=== PATIENT | male | born 1955 | race Asian ===

== ENCOUNTER 2022-09-05 09:32 | Day surgery (SDC) | payer MEDICARE, MEDICAID ==
[~2022-09-05] VITALS: Ht 170.2 cm; Wt 68.0 kg
[2022-09-05 10:58] LABS: BASOPHILS # (AUTO) 0.1 K/uL (0.00-0.22); BASOPHILS % (AUTO) 0.9 % (0.0-2.0); EOSINOPHILS # (AUTO) 0.5 K/uL (0-0.4); HEMATOCRIT 46.4 % (36-52); HEMOGLOBIN 15.7 g/dL (12.0-18.0); LYMPHOCYTES # (AUTO) 2.5 K/uL (2.0-11.5); MEAN CORPUSCULAR HEMOGLOBIN 32 pg (27-31); MEAN CORPUSCULAR HGB CONC 34 g/dL (33-37); MONOCYTES # (AUTO) 0.7 K/uL (0.8-1.0); MONOCYTES % (AUTO) 12.5 % (1.7-9.3); NEUTROPHILS # (AUTO) 1.8 K/uL (1.8-7.7); NEUTROPHILS % (AUTO) 32.6 % (42.2-75.2); PLATELET COUNT (AUTO) 194 K/uL (140-450); RED BLOOD CELL COUNT(AUTO) 4.94 MIL/uL (4.20-6.10); RED CELL DISTRIBUTION WIDTH 13.5 % (11.6-13.7); WHITE BLOOD COUNT (AUTO) 5.6 K/uL (4.8-10.8)
[2022-09-05] MEDS ORDERED: fentaNYL citrate 0.05 MG/ML VIAL ONE (11:08)
[2022-09-05] MEDS ORDERED: LIDOCAINE 1% 500 MG/50 ML VIAL ONE (11:08)
[2022-09-05 11:18] LABS: PROTHROMBIN TIME 10.2 secs (10.8-13.4)
[2022-09-05] MEDS ORDERED: fentaNYL citrate 0.05 MG/ML VIAL IVP ONE (13:00)
== END 2022-09-05 14:00 | disposition home or self-care (01) ==
LOC: MDS 09:32 → MMU 09:33 → MDS 14:00
PROVIDERS: ATTEND Internal Medicine Gastroenterology
DX: B19.20 Unspecified viral hepatitis C without hepatic coma (principal); F17.210 Nicotine dependence, cigarettes, uncomplicated; I10 Essential (primary) hypertension; Z79.899 Other long term (current) drug therapy; Z20.822 Contact with and (suspected) exposure to COVID-19
CPT/HCPCS: 36415; 47000; 76942; 85025; 85610; 85730; 87426; J2001; J3010; Q0092; 88307; 88313

== ENCOUNTER 2022-09-27 09:27 | Day surgery (SDC) | payer MEDICARE, MEDICAID ==
[~2022-09-27] VITALS: Ht 162.6 cm; Wt 72.6 kg
[2022-09-27] MEDS ORDERED: LIDOCAINE 2% 100 MG/5 ML UJET TP ONE (10:23)
[2022-09-27] MEDS ORDERED: fentaNYL citrate 0.05 MG/ML VIAL ONE (10:23)
[2022-09-27] MEDS ORDERED: fentaNYL citrate 0.05 MG/ML VIAL IVP ONE (14:00)
== END 2022-09-27 11:50 | disposition home or self-care (01) ==
LOC: MDS 09:27 → MMU 09:28 → MDS 11:50
PROVIDERS: ATTEND Internal Medicine Gastroenterology
DX: Z12.11 Encounter for screening for malignant neoplasm of colon (principal); K63.5 Polyp of colon; I10 Essential (primary) hypertension; E78.5 Hyperlipidemia, unspecified; F17.210 Nicotine dependence, cigarettes, uncomplicated; Z20.822 Contact with and (suspected) exposure to COVID-19; Z79.899 Other long term (current) drug therapy
CPT/HCPCS: 45385; 87426; J3010